=== PATIENT | male | born 1955 | race Caucasian/White ===

== ENCOUNTER → 2020-09-21 08:08 | Outpatient (BNVA) | payer OTHER, SELFPAY | PROVIDERS: Family Provider Nurse Practitioner Family; PCP Nurse Practitioner Family; Visit Provider Orthopaedic Surgery | DX: S82.839A Other fracture of upper and lower end of unspecified fibula, initial encounter for closed fracture (principal) | CPT/HCPCS: 73590 ==

== ENCOUNTER → 2022-08-22 09:34 | Outpatient (BNVA) | payer OTHER, SELFPAY | PROVIDERS: Family Provider Nurse Practitioner Family; PCP Registered Nurse; Visit Provider Registered Nurse | DX: I10 Essential (primary) hypertension (principal); N40.0 Benign prostatic hyperplasia without lower urinary tract symptoms; R33.9 Retention of urine, unspecified; J30.89 Other allergic rhinitis; J30.2 Other seasonal allergic rhinitis; M25.562 Pain in left knee | CPT/HCPCS: 80053; 80061; 85025; 85651; 86141; G0103 ==

== ENCOUNTER → 2024-03-17 08:14 | Outpatient (BNVA) | payer OTHER, MEDICARE, SELFPAY | PROVIDERS: Family Provider Nurse Practitioner Family; PCP Registered Nurse; Visit Provider Registered Nurse | DX: L30.9 Dermatitis, unspecified (principal); Z91.018 Allergy to other foods | CPT/HCPCS: 86003; 86008 ==

== ENCOUNTER → 2024-10-14 09:48 | Outpatient (BNVA) | payer OTHER, MEDICARE, SELFPAY | PROVIDERS: Family Provider Nurse Practitioner Family; PCP Registered Nurse; Visit Provider Nurse Practitioner Family | DX: J02.9 Acute pharyngitis, unspecified (principal); R53.83 Other fatigue; I10 Essential (primary) hypertension | CPT/HCPCS: 80053; 80061; 84443; 85025; 87880 ==